=== PATIENT | male | born 1960 | race Caucasian/White ===

== ENCOUNTER → 2017-11-19 09:35 | Outpatient (CLI) | payer MEDICARE, MEDICAID, SELFPAY ==
--- NOTE | 2017-11-19 | DI.RAD.S_ITS ---
PROCEDURE: XR KUB INDICATIONS: KIDNEY STONES TECHNIQUE: One view of the abdomen acquired. COMPARISON: Outside Film, CT, CT ABDOMEN PELVIS WITH CONTRAST, 11/05/2017, 10:49. FINDINGS: Surgical changes and devices: None. Bowel: Bowel gas pattern is normal. Soft tissues: No suspicious abdominal calcifications. The previously identified left distal ureteral calculus is not seen on today's exam. There remains a punctate calcification overlying the left renal shadow. Right renal shadow is obscured by overlying stool-filled bowel loops. Visualized solid organ contours appear normal in size. Bones: No suspicious bony lesions. IMPRESSION: Nonvisualization of previously identified distal left ureteral calcification. Dictated by: Rosanna Bradshaw M.D. on 11/19/2017 at 13:30 Approved by: Rosanna Bradshaw M.D. on 11/19/2017 at 13:32
== END ==
PROVIDERS: Family Provider Family Medicine; PCP Family Medicine; Visit Provider Specialist
DX: N20.0 Calculus of kidney (principal)
CPT/HCPCS: 74018

== ENCOUNTER → 2018-02-27 09:14 | Outpatient (CLI) | payer MEDICARE, MEDICAID, SELFPAY ==
[2018-02-27 09:47] LABS: Hemoglobin A1C% w Est Avg Glu 8.5 % (4.0-6.0)
[2018-02-27 09:49] LABS: Alanine Aminotransferase 23 IU/L (21-72); Albumin 4.8 g/dL (3.5-5.0); Albumin Globulin Ratio 1.6 (1.0-2.8); Alkaline Phosphatase 81 U/L (38-126); Aspartate Aminotransferase 30 IU/L (17-59); Bilirubin Total 0.4 mg/dL (0.2-1.3); Blood Urea Nitrogen 9 mg/dL (9-20); Calcium 9.7 mg/dL (8.4-10.2); Carbon Dioxide 22 mmol/L (22-32); Chloride 107 mmol/L (98-107); Cholesterol 114 mg/dL (140-199); Estimated Glomerular Filt Rate > 60.0 mL/min (>60); Glucose 142 mg/dL (70-100); HDL Cholesterol 49 mg/dL (40-60); HEMOLYSIS 19 (0-50); LDL Cholesterol Calculated 24 mg/dL (<100); Potassium 4.4 mmol/L (3.4-5.1); Sodium 148 mmol/L (137-145); Total Protein 7.8 g/dL (6.3-8.2); Triglycerides 204 mg/dL (35-150)
[2018-02-27 10:07] LABS: Vitamin D 25 Hydroxy (D3) 30.1 ng/mL (30.0-100.0)
== END ==
PROVIDERS: PCP Student in an Organized Health Care Education/Training Program; Visit Provider Student in an Organized Health Care Education/Training Program
DX: E11.9 Type 2 diabetes mellitus without complications (principal); Z79.4 Long term (current) use of insulin; I10 Essential (primary) hypertension; N18.2 Chronic kidney disease, stage 2 (mild); Z79.899 Other long term (current) drug therapy; E55.9 Vitamin D deficiency, unspecified; E78.2 Mixed hyperlipidemia
CPT/HCPCS: 36415; 80053; 80061; 82306; 83036

== ENCOUNTER → 2019-02-11 11:50 | Outpatient (CLI) | payer MEDICARE, MEDICAID, SELFPAY ==
[2019-02-11 12:50] LABS: Creatinine Urine Random 205.9 mg/dL
[2019-02-11 12:52] LABS: Microalbumi Creatinin Ratio Ur 4.3 ug/mg CR (<30); Microalbumin Urine Random 0.9 mg/dL (0-1.6)
[2019-02-12 15:13] LABS: Hemoglobin A1C% w Est Avg Glu 7.7 % (4.0-6.0)
== END ==
PROVIDERS: PCP Student in an Organized Health Care Education/Training Program; Visit Provider Student in an Organized Health Care Education/Training Program
DX: E11.9 Type 2 diabetes mellitus without complications (principal); Z79.4 Long term (current) use of insulin
CPT/HCPCS: 36415; 82043; 82570; 83036

== ENCOUNTER → 2019-03-04 13:36 | Outpatient (CLI) | payer MEDICARE, MEDICAID, SELFPAY ==
--- NOTE | 2019-03-06 12:20 | DIET.PN ---
Diabetes Intake: Initial Assessment Assess: Mr Goff is a 58 YOM referred for type 2 diabetes. He has a long standing hx (25 years) when he received some DM education. He moved here from [place] to be closer to his sister to receive care. His sister was present for today's appointment and indicates Mr Goff has some developmental issues and is unable to fully care for himself so she will be attending all appointments. He has kidney stones. He admits he has not followed a healthy diet, consuming junk food, candies, non-heart healthy meals for many years. He has recently cut out milk, cut down on tree nuts, and cut out lunch meat and other sodium rich foods. His sister reports recent weight loss of approx 15 lb in the last 2 mo. UBW 1 yr ago was 260 lb and at 325 lb 14 yrs ago before moving to [place]. Labs: Per pt report: A1c: 7.7 TC: 114 LDL: 24 HDL: 49 Tri Meds: metformin 1000mg BID; Levemir 15 u evening Diet: per 24 hr recall: Wt: 236 lb Ht: 73 in BMI: 31.1 DX: Altered nutrition related laboratory values related to impaired glucose metabolism, lack of previous exposure to nutrition information as evidenced by pt report, diagnosis of diabetes, previous diet high in refined carbohydrates. Intervention: 1. Completed intake assessment. Discussed barriers to care. 2. Discussed pathophysiology of diabetes. Reviewed A1c and its correlation to blood glucose numbers. Discussed recommended BG ranges. 3. Discussed importance of self-monitoring, how often, and when to check. 4. Reviewed hyper/hypoglycemia and treatment. 5. Reviewed safe disposal of equipment (strip/lancets/insulin needles). 6. Created SMART goals for pt self-care and success. 7. Discussed program curriculum outline and class needs based on individual goals. SMART Goals: 1. To control BG by learning better eating habits through carbohydrate counting, portion control, and learning to read food labels. 2. To increase monitoring to 2 x/day checking FBG and alternating meal time PP. Monitor/Evaluate: Anticipate good compliance. Pt will attend full DSME program on an individual basis as deemed medically necessary. Basic Nutrition class scheduled for Mar 17.
== END ==
PROVIDERS: PCP Student in an Organized Health Care Education/Training Program; Visit Provider Student in an Organized Health Care Education/Training Program
DX: E11.9 Type 2 diabetes mellitus without complications (principal); Z71.3 Dietary counseling and surveillance
CPT/HCPCS: G0108

== ENCOUNTER → 2019-03-24 09:50 | Outpatient (CLI) | payer MEDICARE, MEDICAID, SELFPAY ==
--- NOTE | 2019-03-24 12:04 | DIET.PN ---
Dietary Progress Note Diabetes: Healthy Eating 1 Intervention: ? Discussed pathophysiology of diabetes and impact of nutrition/diet on blood sugar control.? Discussed fed versus non-fed state.?? ? Reviewed importance of Balance, Variety, and Moderation. ? Discussed the effect of carbohydrates/protein/fat on blood sugar control.? ? Stressed importance of consistent carbohydrate intake at each meal and provided instructions for recommended servings/portions of carbohydrates/protein per meal. Provided educational material. ? Reviewed carbohydrate counting and measuring carbohydrate content via serving sizes and reading nutrition labels.? Provided handouts.?? ? Discussed the difference between simple versus complex carbohydrates and the effect of fiber on blood sugar control.? Discussed various methods to increase fiber content in diet. ? Discussed the plate method for creating more carbohydrate conscious balanced meals. ? Stressed importance of meal timing and not going >4-5 hours between meals. Encouraged adding protein to evening snack to support glucose control overnight. ? Discussed importance of making dietary habits part of lifestyle change.
== END ==
PROVIDERS: PCP Student in an Organized Health Care Education/Training Program; Visit Provider Student in an Organized Health Care Education/Training Program
DX: E11.9 Type 2 diabetes mellitus without complications (principal); Z71.3 Dietary counseling and surveillance
CPT/HCPCS: G0108

== ENCOUNTER → 2019-10-22 14:14 | Outpatient (CLI) | payer MEDICARE, MEDICAID, SELFPAY ==
[2019-10-22 15:06] LABS: Hemoglobin A1C% w Est Avg Glu 7.2 % (4.0-6.0)
[2019-10-22 15:12] LABS: BUN Creatinine Ratio 10.8 (6-22); Blood Urea Nitrogen 15 mg/dL (9-20); Calcium 9.7 mg/dL (8.4-10.2); Carbon Dioxide 24 mmol/L (22-32); Chloride 105 mmol/L (98-107); Estimated Glomerular Filt Rate 52.5 mL/min (>60); Glucose 242 mg/dL (70-100); HEMOLYSIS < 15 (0-50); Potassium 4.3 mmol/L (3.4-5.1); Sodium 141 mmol/L (137-145)
== END ==
PROVIDERS: PCP Student in an Organized Health Care Education/Training Program; Referring Provider Student in an Organized Health Care Education/Training Program; Visit Provider Student in an Organized Health Care Education/Training Program
DX: E11.9 Type 2 diabetes mellitus without complications (principal); I10 Essential (primary) hypertension; N18.2 Chronic kidney disease, stage 2 (mild); Z79.4 Long term (current) use of insulin
CPT/HCPCS: 36415; 80048; 83036

== ENCOUNTER → 2020-01-12 13:13 | Outpatient (CLI) | payer MEDICARE, MEDICAID, SELFPAY ==
[2020-01-12 15:06] LABS: Hemoglobin A1C% w Est Avg Glu 7.3 % (4.0-6.0)
[2020-01-12 16:03] LABS: BUN Creatinine Ratio 15.6 (6-22); Blood Urea Nitrogen 17 mg/dL (9-20); Estimated Glomerular Filt Rate > 60.0 mL/min (>60); Microalbumin Urine Random 1.4 mg/dL (0-1.6)
[2020-01-12 16:07] LABS: Creatinine Urine Random 205.7 mg/dL; Microalbumi Creatinin Ratio Ur 6.8 ug/mg CR (<30)
== END ==
PROVIDERS: PCP Student in an Organized Health Care Education/Training Program; Referring Provider Student in an Organized Health Care Education/Training Program; Visit Provider Student in an Organized Health Care Education/Training Program
DX: E11.9 Type 2 diabetes mellitus without complications (principal); I10 Essential (primary) hypertension; Z79.4 Long term (current) use of insulin; Z87.442 Personal history of urinary calculi
CPT/HCPCS: 36415; 82043; 82565; 82570; 83036; 84153; 84520

== ENCOUNTER → 2020-07-19 12:55 | Outpatient (CLI) | payer MEDICARE, MEDICAID, SELFPAY ==
[2020-07-19 14:44] LABS: BUN Creatinine Ratio 13.5 (6-22); Blood Urea Nitrogen 15 mg/dL (9-20); Carbon Dioxide 23 mmol/L (22-32); Chloride 105 mmol/L (98-107); Cholesterol 142 mg/dL (140-199); Estimated Glomerular Filt Rate > 60.0 mL/min (>60); Glucose 189 mg/dL (70-100); HDL Cholesterol 44 mg/dL (40-60); HEMOLYSIS < 15 (0-50); Hemoglobin A1C% w Est Avg Glu 9.2 % (4.0-6.0); LDL Cholesterol Calculated 43 mg/dL (<100); Sodium 141 mmol/L (137-145); Triglycerides 275 mg/dL (35-150)
[2020-07-19 15:21] LABS: Creatinine Urine Random 263.9 mg/dL
[2020-07-19 15:25] LABS: Microalbumi Creatinin Ratio Ur 7.5 ug/mg CR (<30)
== END ==
PROVIDERS: PCP Student in an Organized Health Care Education/Training Program; Referring Provider Student in an Organized Health Care Education/Training Program; Visit Provider Student in an Organized Health Care Education/Training Program
DX: E11.9 Type 2 diabetes mellitus without complications (principal); E78.5 Hyperlipidemia, unspecified; I10 Essential (primary) hypertension; Z79.4 Long term (current) use of insulin
CPT/HCPCS: 36415; 80048; 80061; 82043; 82570; 83036

== ENCOUNTER → 2020-09-20 10:51 | Outpatient (CLI) | payer MEDICARE, MEDICAID, SELFPAY ==
[2020-09-20 12:04] LABS: COVID19 -Nasal RAPID Negative (Negative)
== END ==
PROVIDERS: PCP Student in an Organized Health Care Education/Training Program; Visit Provider Specialist
DX: Z20.822 Contact with and (suspected) exposure to COVID-19 (principal)
CPT/HCPCS: 87635; C9803

== ENCOUNTER 2020-09-21 09:31 | Day surgery (SDC) | payer MEDICARE, MEDICAID, SELFPAY ==
[2020-09-16 14:44] VITALS: BMI 32.5
[2020-09-21] VITALS (9 sets, daily range): BP systolic 135–166; BP diastolic 81–97; PULSE 58–102; RESP 13–21; TEMP 36.3–36.8; O2SAT 94–100; BMI 32.5
--- NOTE | 2020-09-21 | PATH_ITS ---
[facility] Accession Number: [id number] . 01 Material submitted: . lymph node - LEFT INGUINAL LYMPH NODE . 01 Clinical history: . SDC . 01 Diagnosis: Left Inguinal Lymph Nodes, Excision: Benign lymph nodes with reactive changes, see microscopic description. Negative for suppurative or granulomatous inflammation. Negative for hematolymphoid malignancy or carcinoma. [facility] 10/03/2020 1635 Local . 01 Electronically signed: . Nell Mcnamara MD, Pathologist NPI- [id number] . 01 Gross description: . The specimen is received in formalin, labeled left inguinal lymph node and consists of two lymph nodes measuring 1.0 x 1.0 x 0.4 cm and 1.2 x 1.0 x 0.8 cm. The specimen is entirely submitted. . A1: one bisected lymph node. A2: one trisected lymph node. (EA:[id number]) /[facility] 09/22/2020 1146 Local . 01 Microscopic: . Microscopic examination of the lymph nodes reveals preserved architecture, open sinuses and lymphoid follicles with reactive germinal centers. Focal areas of fibrosis and areas with fatty changes are also present. There is no evidence of granulomatous inflammation. . To better evaluate the lymphocyte population and also rule out the possibility of occult hematolymphoid malignancy and carcinoma, a panel of immunostains is performed with the following results: . CD3 - T-lymphocytes positive. CD5 - T-lymphocytes positive (negative for aberrant coexpression on the B-lymphocytes). CD20 - B-lymphocytes positive. BCL2 - T-lymphocytes positive (negative for coexpression on the B-lymphocytes, and negative germinal centers of the lymphoid follicles). BCL6 - B-lymphocytes positive (lymphoid follicles). Cyclin D1 - Negative for aberrant coexpression on the B-lymphocytes. Proliferation marker, Ki-67 - Low (germinal centers positive). ROMMEL (duval epithelial marker - Negative (this result supports absence of metastatic carcinoma). . Overall, based on the morphology and immunohistochemistry, there is no evidence of carcinoma and no evidence of hematolymphoid malignancy. . Clinical and radiologic correlation is recommended. . * This test was developed and its performance characteristics determined by [employer]. It has not been cleared or approved by the U.S. Food and Drug Administration. The FDA has determined that such clearance or approval is not necessary. This test is used for clinical purposes. It should not be regarded as investigational or for research. . 01 Pathologist provided ICD-10: K40.90, R59.0 . 01 CPT . 378651, Y93230, E77914 Performed at: 01 [facility] [address] [place] [address], [place], [place] [id number] MD Shaun Conklin MD Phone: [phone]
[2020-09-21] MEDS: LACTATED RINGERS 1,000 ML 42 ML IV (10:10)
--- NOTE | 2020-09-21 10:58 | PM.HP.1 ---
History of Present Illness History of Present Illness Date Patient Seen: 09/21/20 Time Patient Seen: 10:58 Chief complaint: SDC Narrative: Patient is a gentleman I saw in the office in July he has a left inguinal hernia that is symptomatic and he is here for repair. He is accompanied by his sister is he has some memory issues. Patient History Medical History Allergic rhinitis Autism BPH NOS w/o ur obs/LUTS Chronic back pain Depression Diabetes mellitus Gallstones History of nephrolithiasis Hyperlipidemia Hypertension Kidney stones NHL (non-Hodgkin's lymphoma) Overweight Personal history of urinary calculi Right foot pain Sleep apnea Varicocele Surgical History History of colonoscopy (03/10/13) Family & Social History Family History Father Age: 80 Bipolar 1 disorder Alcoholic Mother Age: 79 Parkinson's disease Diabetes mellitus Sister Age: 57 Bipolar 1 disorder Sister Age: 49 Bipolar 1 disorder Brother No problems noted. Grandfather No problems noted. Grandmother Cancer of kidney Grandmother No problems noted. Sister No problems noted. Grandfather No problems noted. Social History: household members none Tobacco & Substance use: Smoking Status Never smoker alcohol intake never Substance Use Type does not use Meds Home Medications and Allergies Home Medications Medication Instructions Recorded Confirmed Type aspirin 81 mg chewable tablet 81 mg PO DAILY #30 tab 02/27/18 09/21/20 Rx [TRUE METRIX METER #1 each 07/23/18 07/28/20 Rx Ultra Thin Lancets #100 each 03/15/20 07/28/20 Rx enalapril maleate 10 mg tablet 10 mg PO QDAY #90 tab 05/04/20 09/21/20 Rx simvastatin 40 mg tablet 40 mg PO HS #90 tabs 05/04/20 09/21/20 Rx tamsulosin 0.4 mg capsule 0.4 mg PO DAILY #90 cap 05/04/20 09/21/20 Rx aripiprazole 15 mg tablet 15 mg PO QDAY #90 tab 05/31/20 09/21/20 Rx fluoxetine 20 mg capsule 20 mg PO DAILY #90 cap 05/31/20 09/21/20 Rx topiramate 100 mg tablet 100 mg PO QDAY #90 tabs 05/31/20 09/16/20 Rx glimepiride 2 mg tablet 2 mg PO QAC #270 tab 07/20/20 09/21/20 Rx metformin 850 mg tablet 850 mg PO QAC #270 tab 07/20/20 09/21/20 Rx True Track Blood Glucose Test #100 each 08/18/20 Rx Strips Allergies Allergy/AdvReac Type Severity Reaction Status Date / Time No Known Drug Allergies Allergy Verified 07/28/20 14:27 Review of Systems Review of Systems Narrative: No cough cold or asthma. No chest pain or heart problems. No black or bloody bowel movements. Last colonoscopy 2012. No seizures or blackouts. He does have diabetes and is on medication for same he has elevated lipids and he takes blood pressure medicine and medication for his prostate Exam Vital Signs (past 8 hours): - 09/21/20 09:52 Temperature 97.5 F L Pulse Rate 64 Respiratory Rate 18 Blood Pressure 135/81 Pulse Oximetry 100 Oxygen Delivery Method Room Air Narrative Exam Narrative: Pleasant cooperative patient no apparent distress. Lungs are clear to auscultation. No rales or rhonchi. Heart regular rate and rhythm no murmur gallop. Abdomen is soft nontender without mass. Protuberant. No obvious hernias. Patient has a left inguinal hernia best seen on CT scanning. Patient is alert and oriented x3. Assessment & Plan Assessment & Plan narrative: Patient with a left inguinal hernia for repair. I have discussed the procedure with him both here and in the office. Risks of bleeding, infection, recurrence, nerve injury which could result in chronic pain or numbness, testicular injury all discussed with him. He appears to understand wishes to proceed.
--- NOTE | 2020-09-21 11:02 | PM.PREOP ---
Pre-operative Note COVID-19 COVID-19 status: Negative Result date/Date tested (Pos, Neg/Pending): 09/20/20 Interval Note History & Physical reviewed/Exam performed by Physician: Yes Changes to H&P: No
[2020-09-21] MEDS: CEFAZOLIN 1 GM VIAL 2 GM IV (11:26)
[2020-09-21] MEDS: BUPIVACAINE 0.5% (PF) VIAL 30 ML INJ (11:48)
--- NOTE | 2020-09-21 13:18 | PM.OP.1 ---
Operative Date/Time/Diagnoses Date of procedure: 09/21/20 Time of procedure: 13:19 Pre-op diagnosis: Left inguinal hernia reducible Post-op diagnosis: other (Recurrence left inguinal hernia reducible) Procedure & Clinicians Procedure: Repair with Aydee technique (mesh onlay) Same procedure as scheduled: Yes Indications: Symptomatic left inguinal hernia Surgeon: Jose Guadalupe Tabares Click Yes if Unassisted: Yes Anesthesia Type: General Operative Notes Findings: Patient had a scar suggesting a prior operation which was not reported to me by the patient, family or noted in the medical record. Indeed, scarring from it it was apparent that he had a prior hernia repair without mesh. I removed 1 lymph node in the operative area. Closure Type: primary Specimen(s): other (Lymph node left groin) Estimated Blood Loss (mL): 10 Procedure in detail: The patient was placed supine on the operating room table and underwent general LMA anesthesia. He was prepped and draped in the usual fashion an incision was made through an old scar in the left lower abdomen which was extended laterally. And carried down to the level of what appeared to be scarring in the external oblique. The external oblique was opened parallel with its fibers through this scar and through what appeared to be the external ring. The cord structures identified as structures surrounded by scarred in fat. They Were elevated. There was no identifiable cremaster. The fat involving the cord structures was opened proximally and search made for an indirect sac. All I could identify was scarring from what was probably a high ligation done in the past. Usual structures of the cord were really not identified due to the scarring and thickening. The floor was examined and was found to be weakened. There was a vein running along the floor which I could not dissect up safely due to dense scarring is so I left it on the floor. I cleared the floor to identify normal structures. Identified what appeared to be the external oblique as it curved around to form the inguinal ligament. Due to scarring the edge of the ligament could not easily be seen. There was fat adherent to the floor near the pubic tubercle. Initially I thought it might be coming up through the floor is a hernia but I dissected it off the floor and it appeared to be around globule of fat which I chose not to remove. A patch was placed across the floor and tacked at the pubic tubercle, the posterior lamella of the anterior rectus sheath, the ilioinguinal ligament, and superior lateral to the cord. The opening was modified as necessary to prevent tight constriction of the cord. Sutures of 0 Ethibond were used to secure the mesh. The structure thought to be the external oblique was closed with a running 3 0 Vicryl. The subcu was closed with interrupted 4-0 Vicryl. The skin was closed with a running 4 0 Vicryl subcuticular stitch and Steri-Strips. Dressing was applied, the patient was awakened, and the patient was taken to the recovery area in good condition. Local anesthetic was infiltrated prior to adding the dressings. Complications: none Post-operative Condition: stable Disposition: PACU
[2020-09-21] MEDS: OXYCODONE/ACETAMINOPHEN 5/325 TABLET 1 TAB PO (13:35)
== END 2020-09-21 14:30 | disposition home or self-care (01) ==
PROVIDERS: PCP Student in an Organized Health Care Education/Training Program; Referring Provider Specialist; Visit Provider Specialist
PROC: (CPT 49520; principal; 2020-09-21 10:45)
DX: K40.91 Unilateral inguinal hernia, without obstruction or gangrene, recurrent (principal); E11.9 Type 2 diabetes mellitus without complications; I10 Essential (primary) hypertension; J45.909 Unspecified asthma, uncomplicated; G47.33 Obstructive sleep apnea (adult) (pediatric); Z79.84 Long term (current) use of oral hypoglycemic drugs
CPT/HCPCS: 49520; 82962; C1781; J0690; J1100; J2250; J2405; J2704; J3010

== ENCOUNTER → 2021-02-28 09:41 | Outpatient (CLI) | payer MEDICARE, MEDICAID, SELFPAY ==
--- NOTE | 2021-02-28 09:42 | DI.US.S_ITS ---
PROCEDURE: US SCROTUM INDICATIONS: LEFT TESTICLE PAIN TECHNIQUE: Real-time scanning was performed of the scrotum and testicles, with image documentation. Color and pulse Doppler interrogation was performed of both testicles. COMPARISON: None. FINDINGS: Right: Testicle is normal in size at 5.0 x 3.2 x 2.2 cm, and homogenous in echotexture. Epididymis is normal in overall size and morphology. No hydrocele or varicoceles. Overlying scrotal skin is normal in thickness. Left: Testicle is normal in size at 4.0 x 3.2 x 2.0 cm, and homogeneous in echotexture. Epididymis is normal in overall size and morphology. No hydrocele or varicoceles. Overlying scrotal skin is normal in thickness. Doppler: Color and pulse Doppler demonstrate normal and symmetric arterial flow in both testicles. IMPRESSION: Negative examination as above. No specific visualized etiology to explain left testicular pain. Dictated by: Rao Arthur M.D. on 02/28/2021 at 14:39 Approved by: Rao Arthur M.D. on 02/28/2021 at 14:41
== END ==
PROVIDERS: PCP Student in an Organized Health Care Education/Training Program; Referring Provider Student in an Organized Health Care Education/Training Program; Visit Provider Student in an Organized Health Care Education/Training Program
DX: N50.812 Left testicular pain (principal); Z98.890 Other specified postprocedural states; Z87.19 Personal history of other diseases of the digestive system
CPT/HCPCS: 76870

== ENCOUNTER → 2022-05-29 16:05 | Outpatient (CLI) | payer MEDICARE, MEDICAID, SELFPAY ==
[2022-05-29 20:16] LABS: Hemoglobin A1C% w Est Avg Glu 6.8 % (4.0-6.0)
== END ==
PROVIDERS: PCP Student in an Organized Health Care Education/Training Program; Referring Provider Student in an Organized Health Care Education/Training Program; Visit Provider Student in an Organized Health Care Education/Training Program
DX: E11.69 Type 2 diabetes mellitus with other specified complication (principal); E78.5 Hyperlipidemia, unspecified; N18.2 Chronic kidney disease, stage 2 (mild); Z79.4 Long term (current) use of insulin
CPT/HCPCS: 36415; 83036

== ENCOUNTER → 2022-08-21 14:18 | Outpatient (CLI) | payer MEDICARE, MEDICAID, SELFPAY ==
[2022-08-21 14:39] LABS: Appearance Urine UA CLEAR; Bilirubin Urine UA NEGATIVE (NEGATIVE); Color Urine UA YELLOW; Glucose Urine UA NEGATIVE (Negative); Ketones Urine UA TRACE (NEGATIVE); Leukocyte Esterase Urine UA NEGATIVE (NEGATIVE); Nitrite Urine UA NEGATIVE (Negative); Occult Blood Urine UA NEGATIVE (Negative); Protein Urine UA NEGATIVE (Negative); pH Urine UA 6.5 (4.5-8.0)
[2022-08-21 14:55] LABS: Bacteria Urine Occasional (0-1); Culture Indicated Urine Cult Not Indicated; RBC Urine 1-5/HPF (0-5/HPF); Squamous Epithelial Cell Urine 0-1 /HPF (0-5/HPF); WBC Urine 1-5/HPF (0-5/HPF)
== END ==
PROVIDERS: PCP Student in an Organized Health Care Education/Training Program; Referring Provider Student in an Organized Health Care Education/Training Program; Visit Provider Student in an Organized Health Care Education/Training Program
DX: R35.0 Frequency of micturition (principal)
CPT/HCPCS: 81001

== ENCOUNTER → 2023-07-11 11:22 | Outpatient (CLI) | payer MEDICARE, MEDICAID, SELFPAY ==
[2023-07-11 12:14] LABS: Add Manual Diff / Slide Review NO; Basophils Absolute Auto 0 /uL (0-100); Basophils Percent Auto 0.7 % (0-2); Eosinophils Absolute Auto 100 /uL (0-450); Eosinophils Percent Auto 0.8 % (2-4); Hematocrit 40.7 % (41-53); Hemoglobin 13.5 g/dL (13.5-17.5); Lymphocytes Absolute Auto 1600 /uL (1100-4500); Lymphocytes Percent Auto 24.2 % (25-40); Mean Corpuscular HGB Conc 33.1 % (30-36); Mean Corpuscular Hemoglobin 30.3 PG (26-34); Mean Corpuscular Volume 91.4 fL (80-100); Monocytes Absolute Auto 400 /uL (0-900); Monocytes Percent Auto 5.6 % (3-14); Neutrophils Absolute Auto 4500 /uL (1500-7000); Neutrophils Percent Auto 68.7 % (50-75); Platelet Count 216 X10^3/uL (150-400); Red Blood Cell Count 4.45 X10^6/uL (4.5-5.9); Red Cell Distribution Width 13.7 % (11.6-14.8); White Blood Cell Count 6.5 X10^3/uL (4.5-11.0)
[2023-07-11 12:15] LABS: Hemoglobin A1C% w Est Avg Glu 6.6 % (4.0-6.0)
[2023-07-11 12:24] LABS: Appearance Urine UA CLEAR; Bilirubin Urine UA NEGATIVE (NEGATIVE); Color Urine UA YELLOW; Glucose Urine UA NEGATIVE (Negative); Ketones Urine UA NEGATIVE (NEGATIVE); Leukocyte Esterase Urine UA NEGATIVE (NEGATIVE); Nitrite Urine UA NEGATIVE (Negative); Occult Blood Urine UA NEGATIVE (Negative); Protein Urine UA NEGATIVE (Negative)
[2023-07-11 12:29] LABS: Alanine Aminotransferase 11 IU/L (<50); Alkaline Phosphatase 78 U/L (38-126); Aspartate Aminotransferase 22 IU/L (17-59); BUN Creatinine Ratio 7.1 (6-22); Bilirubin Total 0.4 mg/dL (0.2-1.3); Blood Urea Nitrogen 8 mg/dL (9-20); C-Reactive Protein Quant < 0.5 mg/dL (<1.0); Calcium 9.3 mg/dL (8.4-10.2); Carbon Dioxide 27 mmol/L (22-32); Chloride 111 mmol/L (98-107); Cholesterol 125 mg/dL (140-199); Estimated Glomerular Filt Rate > 60 mL/min (>60); Glucose 105 mg/dL (80-110); HDL Cholesterol 46 mg/dL (40-60); HEMOLYSIS < 15 (0-50); LDL Cholesterol Calculated 48 mg/dL (<100); Potassium 4.7 mmol/L (3.4-5.1); Sodium 142 mmol/L (137-145); Total Protein 7.1 g/dL (6.3-8.2); Triglycerides 157 mg/dL (35-150)
[2023-07-11 12:38] LABS: Bacteria Urine None Seen; Culture Indicated Urine Cult Not Indicated; RBC Urine None Seen (0-5/HPF); Squamous Epithelial Cell Urine None Seen (0-5/HPF); Urine Volume 10mL (spun); WBC Urine None Seen (0-5/HPF)
[2023-07-11 12:40] LABS: Creatinine Urine Random 187.8 mg/dL
[2023-07-11 12:44] LABS: Microalbumi Creatinin Ratio Ur 14.3 ug/mg CR (<30); Microalbumin Urine Random 2.7 mg/dL (0-1.6)
[2023-07-11 12:54] LABS: TSH w/ Reflex to FT4 2.06 uIU/mL (0.47-4.68)
[2023-07-11 16:16] LABS: Albumin Globulin Ratio 1.2 (1.0-2.8); Globulin 3.3 g/dL (1.7-4.1)
[2023-07-11 16:21] LABS: Albumin 3.8 g/dL (3.5-5.0)
[2023-07-13 22:07] LABS: Tissue Transglutaminase IgG <2 U/mL (0-5)
== END ==
PROVIDERS: PCP Family Medicine; Referring Provider Family Medicine; Visit Provider Family Medicine
DX: E11.9 Type 2 diabetes mellitus without complications (principal); I10 Essential (primary) hypertension; G47.33 Obstructive sleep apnea (adult) (pediatric); N18.2 Chronic kidney disease, stage 2 (mild); E66.9 Obesity, unspecified; E11.69 Type 2 diabetes mellitus with other specified complication; E78.5 Hyperlipidemia, unspecified; K52.9 Noninfective gastroenteritis and colitis, unspecified
CPT/HCPCS: 36415; 80053; 80061; 81001; 82043; 82570; 83036; 83516; 84443; 85025; 86140

== ENCOUNTER 2023-11-07 07:22 | Day surgery (SDC) | payer MEDICARE, MEDICAID, SELFPAY ==
--- NOTE | 2023-11-07 | PATH_ITS ---
[facility] Accession Number: [id number] No. of containers..01 Tissue . 01 Material submitted: . cecum - CECAL POLYPS X 2 . 01 Diagnosis: CECAL POLYPS X 2: Tubular adenoma. Colonic mucosa with benign lymphoid aggregate. [facility] 11/12/2023 1639 Local . 01 Electronically signed: . Shaun Conklin MD, Pathologist NPI- [id number] . 01 Gross description: . Received in formalin with two patient identifiers and cecal polyps x2, is a single darden soft tissue fragment 1.1 cm in greatest dimension. Submitted in cassette A1. ([id number]) /[facility] 11/12/2023 1639 Local . 01 Pathologist provided ICD-10: D12.0 . 01 CPT . 611719 Specimen Comment: A courtesy copy of this report has been sent to [phone] Performed at: 01 [facility] [address], [place], [place] [id number] MD Shaun Conklin MD Phone: [phone]
[2023-11-07 07:44] VITALS: BP 122/79; PULSE 67; RESP 18; TEMP 36.1; O2SAT 100
[2023-11-07] MEDS: LACTATED RINGERS 1,000 ML 42 ML IV (07:49)
--- NOTE | 2023-11-07 08:22 | P.HP_ITS ---
History of Present Illness History of Present Illness Date Patient Seen: 11/07/23 Time Patient Seen: 08:22 Chief complaint: [facility] Narrative: Abilio is a 63-year-old man who is here for a colonoscopy. His last one was about 10 years ago and was normal. [facility] Medical History (Updated 11/07/23 @ 08:22 by Gregorio Villarreal MD) Autistic disorder Scrotal pain Scrotal sac enlargement Groin pain, chronic, left Varicocele BPH NOS w/o ur obs/LUTS NHL (non-Hodgkin's lymphoma) Sleep apnea Right foot pain Chronic back pain Allergic rhinitis Kidney stones Gallstones Surgical History (Updated 06/09/21 @ 12:45 by Agustín Hodge MD) Status post left inguinal hernia repair History of colonoscopy (03/10/13) Family History Father Age: 83 Bipolar 1 disorder Alcoholic Mother Age: 82 Parkinson's disease Diabetes mellitus Sister Age: 60 Bipolar 1 disorder Sister Age: 52 Bipolar 1 disorder Brother No problems noted. Grandfather No problems noted. Grandmother Cancer of kidney Grandmother No problems noted. Sister No problems noted. Grandfather No problems noted. Social History marital status: unmarried,single household members: none lives independently: Yes housing: apartment pets and animals: No Smoking Status: Never smoker alcohol intake: never substance use type: does not use eating out: 1-3 times/week Type(s) of exercise: walking Meds Home Medications and Allergies Home Medications Medication Instructions Recorded Confirmed Type aspirin 81 mg chewable tablet 81 mg PO DAILY #30 tabs 02/27/18 11/07/23 Rx [TRUE METRIX METER #1 ea 07/23/18 08/01/23 Rx Ultra Thin Lancets #100 ea 05/04/21 08/01/23 Rx True Track Blood Glucose Test #100 ea 08/14/21 08/01/23 Rx Strips finasteride 5 mg tablet 5 mg PO DAILY 08/23/21 11/07/23 History tamsulosin 0.4 mg capsule 0.4 mg PO BID #90 caps 08/23/21 11/07/23 Rx enalapril maleate 10 mg tablet 10 mg PO QDAY #90 tabs 03/26/24 07/11/24 Rx simvastatin 40 mg tablet 40 mg PO HS #90 tabs 07/30/23 11/07/23 Rx pioglitazone 30 mg tablet 30 mg PO DAILY #28 tabs 08/15/23 11/07/23 Rx aripiprazole 15 mg tablet 15 mg PO DAILY #28 tabs 09/12/23 11/07/23 Rx fluoxetine 20 mg capsule 20 mg PO DAILY #28 caps 09/12/23 11/07/23 Rx glimepiride 2 mg tablet 2 mg PO 3XD #84 tabs 09/12/23 11/07/23 Rx metformin 850 mg tablet 850 mg PO 3XD #84 tabs 09/12/23 11/07/23 Rx topiramate 100 mg tablet 100 mg PO DAILY #28 tabs 09/12/23 Rx Allergies Allergy/AdvReac Type Severity Reaction Status Date / Time No Known Drug Allergies Allergy Verified 08/01/23 09:52 Exam Vital Signs (past 8 hours): - 11/07/23 07:44 Temperature 97 F L Pulse Rate 67 Respiratory Rate 18 Blood Pressure 122/79 Pulse Oximetry 100 Oxygen Delivery Method Room Air Oxygen Delivery Method Room Air Const General: No acute distress Resp Effort & Inspection: normal respiratory effort Assessment & Plan Assessment and plan (1) Colon cancer screening: Status: Acute Plan We reviewed the risks and benefits colonoscopy for colon cancer screening and he would like to proceed. Time-Based Coding :: [TOTAL MINUTES] spent with patient and on the chart (including review of chart, obtaining history, exam, reviewing outside data, placing orders, documenting exam and treatment plan, and counseling patient) on [DATE].
--- NOTE | 2023-11-07 08:59 | P.OP.COLON_ITS ---
Operative Date/Time/Diagnoses Date of procedure: 11/07/23 Time of procedure: 08:59 Pre-op diagnosis: Colon cancer screening Post-op diagnosis: same Procedure & Clinicians Study performed: Colonoscopy Same procedure as scheduled: Yes Surgeon: Gregorio Villarreal Procedure Notes Procedure in detail: Surgeon: Gregorio Villarreal MD Anesthesia: Nae Brasher DO Procedure: The patient was brought to the endoscopy suite, placed in left lateral decubitus position. The patient was connected to monitoring devices. A time-out was performed. Sedation was administered. Once the patient was adequately sedated, a digital rectal exam was performed and was normal. The scope was then inserted and advanced to the cecum where the appendiceal orifice was identified and photographed. The scope was then slowly withdrawn over greater than 6 minutes. The mucosa was thoroughly inspected. There were 2 jarad yps in the cecum, each about 5 mm in size. Each was removed with a cold snare and sent together. The rest of the colon was normal. The scope was retroflexed in the rectum. No other abnormalities were seen. The scope was straightened and removed. The patient was awakened and brought to recovery. Scope withdrawal time: 17 minutes Sedation time: 20 minutes EBL: 30 mL Findings: 2 small cecal polyps less than 1 cm Post-procedure Disposition: PACU
[2023-11-07 09:00] VITALS: BP 114/73; PULSE 57; RESP 16; TEMP 36.3; O2SAT 94
[2023-11-07 09:05] VITALS: BP 111/75; PULSE 53; RESP 12
[2023-11-07 09:10] VITALS: BP 113/78; PULSE 55; RESP 17; O2SAT 97
[2023-11-07 09:20] VITALS: BP 111/81; PULSE 60; RESP 14; O2SAT 96
== END 2023-11-07 09:22 | disposition home or self-care (01) ==
PROVIDERS: PCP Family Medicine; Referring Provider Surgery; Visit Provider Surgery
PROC: 0DJD8ZZ Inspection of Lower Intestinal Tract, Via Natural or Artificial Opening Endoscopic (ICD-10-PCS; CPT 45378; principal; 2023-11-07 08:15)
DX: Z12.11 Encounter for screening for malignant neoplasm of colon (principal); D12.0 Benign neoplasm of cecum
CPT/HCPCS: 45385; J2704